=== PATIENT | female | born 1955 | race Caucasian/White ===

== ENCOUNTER → 2020-05-09 | Outpatient (CLI) | payer BC ==
[~2020-05-09] MED LIST: IBUP600 PO; ONDA4ODT MM
[2020-05-11 14:10] LABS: HPV 16 Negative (Negative); HPV 18 Negative (Negative); HPV OTHER HR TYPES Negative (Negative)
== END | disposition home or self-care (01) ==
LOC: LAB 11:30 → LAB SHORT 11:30
PROVIDERS: Family Medicine
DX: Z01.419 Encounter for gynecological examination (general) (routine) without abnormal findings (principal)
CPT/HCPCS: 87624; G0145

== ENCOUNTER 2020-08-30 17:05 | Emergency (ER) | payer BC | END 2020-08-30 21:02 | disposition home or self-care (01) | LOC: ER 17:05 | DX: M54.9 Dorsalgia, unspecified (principal) ==

== ENCOUNTER → 2021-01-13 | Outpatient (CLI) | payer BC ==
[2021-01-13 12:56] LABS: BASOPHILS ABSOLUTE AUTO 0.05 K/mm3 (0.00-0.23); BASOPHILS PERCENT AUTO 1 % (0-2); EOSINOPHILS ABSOLUTE AUTO 0.12 K/mm3 (0.00-0.68); EOSINOPHILS PERCENT AUTO 2 % (0-6); Hemoglobin 15.6 g/dL (11.5-16.0); IMMATURE GRAN ABSOLUTE AUTO 0.03 K/mm3 (0.00-0.10); IMMATURE GRAN PERCENT AUTO 0 % (0-1); LYMPHOCYTES ABSOLUTE AUTO 1.91 K/mm3 (0.84-5.20); LYMPHOCYTES PERCENT AUTO 28 % (21-46); MONOCYTES ABSOLUTE AUTO 0.66 K/mm3 (0.16-1.47); MONOCYTES PERCENT AUTO 10 % (4-13); Mean Corpuscular HGB 29.6 pg (26.0-34.0); Mean Corpuscular HGB Conc 33.9 g/dL (31.5-36.5); Mean Corpuscular Volume 87 fL (80-100); Mean Platelet Volume 9.3 fL (9.1-12.4); NEUTROPHILS ABSOLUTE AUTO 4.06 K/mm3 (1.96-9.15); NEUTROPHILS PERCENT AUTO 59 % (41-73); Platelet Count 209 K/mm3 (150-400); RDW Coefficient Variation 12.6 % (11.7-14.2); RDW Standard Deviation 39.8 fL (35.1-46.3); Red Blood Cell Count 5.27 M/mm3 (3.80-5.20); White Blood Cell Count 6.83 K/mm3 (4.00-11.30)
[2021-01-13 13:21] LABS: Alanine Aminotransfer (ALT/SGP 28 U/L (12-78); Albumin, Blood 4.4 g/dL (3.4-5.0); Albumin/Globulin Ratio 1.2 (0.8-1.8); Alk Phos 60 U/L (40-126); Anion Gap 10 mmol/L (6-16); Aspartate Aminotrans (AST/SGOT 19 U/L (12-37); Bilirubin, Total 0.6 mg/dL (0.1-1.0); Blood Urea Nitrogen 10 mg/dL (8-24); Bun/Creatinine Ratio 15.4 (12.0-20.0); CO2, Blood 30 mmol/L (21-32); Calcium, Blood 9.1 mg/dL (8.5-10.1); Chloride, Blood 103 mmol/L (98-108); Creatinine, Blood 0.65 mg/dL (0.40-1.00); Globulin, Blood 3.6 g/dL (2.2-4.0); Glomerular Filtration Rate >60 (60-); Glucose, Blood 100 mg/dL (70-99); Sodium, Blood 143 mmol/L (136-145); Thyroid Stimulating Hormone 2.924 uIU/mL (0.360-4.800)
[2021-01-13 13:46] LABS: Troponin I <0.017 ng/mL (0.000-0.040)
== END | disposition home or self-care (01) ==
LOC: LAB 12:48 → LAB SHORT 12:48
PROVIDERS: Physician Assistant
DX: R07.89 Other chest pain (principal); R00.2 Palpitations
CPT/HCPCS: 80053; 84443; 84484; 85025

== ENCOUNTER → 2024-01-02 | Outpatient (CLI) | payer OTHER | LOC: LAB 10:46 → LAB SHORT 10:46 | DX: R30.0 Dysuria (principal) | CPT/HCPCS: 87077; 87086; 87186 ==

== ENCOUNTER 2024-01-27 08:11 | Day surgery (SDC) | payer OTHER ==
[2024-01-28] MEDS ORDERED: Aspir 8181 MG PO (12:38)
[2024-01-28] MEDS ORDERED: ACYC800 PO (12:38)
[2024-01-28] MEDS ORDERED: Estrace Vagin42.5 GM VAG (12:39)
[2024-01-28] MEDS ORDERED: NITR.4SL SL (12:39)
[2024-01-28] MEDS ORDERED: SERT50 PO (12:40)
[2024-01-28] MEDS ORDERED: METO25ER PO (12:43)
== END 2024-01-27 23:00 | disposition home or self-care (01) ==
LOC: MOI US 08:11
DX: D24.1 Benign neoplasm of right breast (principal)
CPT/HCPCS: 19285; 77065; A4648

== ENCOUNTER 2024-02-06 09:02 | Day surgery (SDC) | payer OTHER ==
[~2024-02-06] VITALS: Ht 162.6 cm; Wt 66.8 kg
[2024-02-06] VITALS (8 sets, daily range): BP systolic 134–147; BP diastolic 81–99
[~2024-02-06 09:02] MED LIST changes: +ACYC800 PO; +Aspir 8181 MG PO; +CeFAZolin Sodium 2,000 MG in NS 100 ML IV SCH; +Estrace Vagin42.5 GM VAG; +Lactated Ringer's 1,000 ML IV SCH; +METO25ER PO; +NITR.4SL SL; +SERT50 PO
[2024-02-06] MEDS ORDERED: CeFAZolin Sodium 2,000 MG VIAL ONE (09:03)
--- NOTE | 2024-02-06 09:40 | NUR ---
Ambulatory in Day Surgery History, Chart, Medications and Allergies reviewed before start of procedure. Pre-Op teaching done. Pt verbalizes understanding. Patient States Post-Procedure ride home has been arranged.
[2024-02-06] MEDS ORDERED: Bupivacaine 0.5% HCl 5 MG/ML 30MLVIAL ONE (09:48)
[2024-02-06] MEDS ORDERED: FentaNYL Citrate 50 MCG/ML 2 ML Injection ONE (10:10)
[2024-02-06] MEDS ORDERED: propofoL 20 ML IV ONE (10:10)
[2024-02-06] MEDS ORDERED: Dexamethasone Sod Phos 10 MG/ML 1ML VIAL ONE (10:28)
[2024-02-06] MEDS ORDERED: Glycopyrrolate 0.2 MG/ML 5ML VIAL ONE (10:33)
[2024-02-06] MEDS ORDERED: Ondansetron HCl 2 MG / ML 2ML Vial ONE (10:58)
--- NOTE | 2024-02-06 12:15 | NUR ---
1145 PT TO STEP DOWN RECOVERY. VSS. PT ON RA. PT ABLE TO REPOSITION SELF IN BED. PT REQUESTING PO FLUIDS AND TOLERATING THEM WELL. PT DENIES PAIN, NAUSEA OR OTHER DISCOMFORTS. PT HAS GAUZE/EXOFEN TO RIGHT BREAST THAT IS C/D/I. PT ALSO HAS BREAST BINDER IN PLACE. PT ABLE TO AMBULATE TO BR TO VOID AND CHANGE. PT SPOUSE AT BEDSIDE.
--- NOTE | 2024-02-06 12:17 | NUR ---
1210 Patient up to Ambulate independently. Gait steady. VSS AND CONSISTENT WITH PT BASELINE. PT HAS NO COMPLAINTS AND VERBALIZES READINESS TO GO HOME. Discharge instructions reviewed with patient. Patient verbalizes understanding. Copy given to patient to take home. Dressing to procedure site clean, dry, intact with no visible drainage, swelling, erythema or bruising noted. Patient States Post-Procedure ride home has been arranged. Discharged via wheelchair to private car for ride home. PT BELONGINGS RETURNED TO PT.
== END 2024-02-06 12:10 | disposition home or self-care (01) ==
LOC: ORSCMMR 09:02 → ORD 10:30 → ORSCMMR 12:10
PROVIDERS: Surgery
PROC: 0HBT0ZX Excision of Right Breast, Open Approach, Diagnostic (ICD-10-PCS; principal; 2024-02-06 10:30)
DX: D24.1 Benign neoplasm of right breast (principal); I10 Essential (primary) hypertension; F41.8 Other specified anxiety disorders; Z85.828 Personal history of other malignant neoplasm of skin; Z86.19 Personal history of other infectious and parasitic diseases; Z79.899 Other long term (current) drug therapy; Z79.82 Long term (current) use of aspirin
CPT/HCPCS: 76098; 88307; J0690; J1100; J2405; J2704; J3010; J7120

== ENCOUNTER → 2024-02-25 | Outpatient (CLI) | payer OTHER ==
[~2024-02-25] MED LIST changes: -CeFAZolin Sodium 2,000 MG in NS 100 ML IV SCH; -Lactated Ringer's 1,000 ML IV SCH
== END | disposition home or self-care (01) ==
LOC: LAB SHORT 13:01 → LAB 13:01
DX: N39.0 Urinary tract infection, site not specified (principal)
CPT/HCPCS: 87077; 87086; 87186

== ENCOUNTER → 2024-04-20 | Outpatient (CLI) | payer OTHER | LOC: LAB SHORT 14:52 → LAB 14:52 | DX: R30.0 Dysuria (principal) | CPT/HCPCS: 87086 ==

== ENCOUNTER 2024-06-02 12:02 | Day surgery (SDC) | payer OTHER ==
[~2024-06-02] VITALS: Ht 162.6 cm; Wt 64.3 kg
[~2024-06-02 12:02] MED LIST changes: +Lactated Ringer's 1,000 ML IV ONE; +propofoL 50 ML IV ONE
[2024-06-02] MEDS ORDERED: ASPI81CH (12:22)
[2024-06-02] MEDS ORDERED: Lactated Ringer's 1,000 ML IV ONE (12:49)
[2024-06-02 14:10] VITALS: BP 127/77
== END 2024-06-02 14:12 | disposition home or self-care (01) ==
LOC: ORSCSDS 12:02
PROVIDERS: Specialist
PROC: 0DBE8ZX Excision of Large Intestine, Via Natural or Artificial Opening Endoscopic, Diagnostic (ICD-10-PCS; principal; 2024-06-02 13:30)
DX: R10.12 Left upper quadrant pain (principal); R19.4 Change in bowel habit; K64.8 Other hemorrhoids; K57.30 Diverticulosis of large intestine without perforation or abscess without bleeding; Z79.82 Long term (current) use of aspirin; Z79.899 Other long term (current) drug therapy
CPT/HCPCS: 88305; J2704; J7120

== ENCOUNTER → 2024-09-30 | Outpatient (CLI) | payer OTHER ==
[~2024-09-30] MED LIST changes: +ASPI81CH; -Lactated Ringer's 1,000 ML IV ONE; -propofoL 50 ML IV ONE
== END ==
LOC: LAB SHORT 15:24 → LAB 15:24
DX: N39.0 Urinary tract infection, site not specified (principal)
CPT/HCPCS: 87077; 87086; 87186